=== PATIENT | female | born 1980 | race Caucasian/White ===

== ENCOUNTER 2021-11-19 10:51 | Outpatient (CLI) | payer OTHER ==
--- NOTE | 2021-11-19 14:20 | Ultrasound Report ---
PROCEDURE: Head or Neck Soft Tissue INDICATIONS: LUMP IN THYROID AREA TECHNIQUE: Real time scanning was performed of the neck region of interest, with image documentation . COMPARISON: None. FINDINGS: Normal size and appearance of the thyroid. No thyroid nodule or mass. No soft tissue mass o r fluid collection in the regional extrathyroidal soft tissues. IMPRESSION: Normal study. No thyroid nodule or thyroid mass. No extrathyroidal soft tissue mass within the [id number]. Reviewed by: Mayco Martinez MD on 11/19/2021 2:19 PM PDT Approved by: Mayco Martinez MD on 11/19/2021 2:19 PM PDT Station ID: [id number]
== END 2021-11-19 10:52 | disposition home or self-care (01) ==
LOC: DI 10:51
PROVIDERS: ATTEND Physician Assistant
DX: F45.8 Other somatoform disorders (principal); R09.89 Other specified symptoms and signs involving the circulatory and respiratory systems

== ENCOUNTER 2022-04-13 09:33 | Outpatient (CLI) | payer OTHER ==
[2022-04-13 10:24] VITALS: BP 136/84
--- NOTE | 2022-04-13 10:24 | SLEEP CARE CONSULTATION ---
Information from patient questionnaire entered by Mitchell Klein. I have reviewed and concur with the information entered by Mitchell Klein. This document represents the service I personally performed and the decisions made by me, Landy Yoder ARNP. History of Present Illness Service Date and Time: 04/13/2022 0933 Reason for Visit: New patient, sleep apnea on CPAP therapy Chief Complaint: reports: Insomnia, Fatigue, Frequent awakenings at night, Other (UPDATE SUPPLIES ) Date of Onset: 2YRS Usual bedtime: 1030-MIDNIGHT Time it takes to fall asleep: 15MIN - 2HRS Snores at night: Yes (not with CPAP use) Observed to quit breathing while asleep: No Sleeps alone due to snoring: No Number of times waking at night: 1-2 Reasons for waking at night: reports: Bathroom, Other (ANXIETY, ANIMALS ) Toss, Turn, or Twitch while sleeping: Yes Recalls having dreams: Yes Usually gets out of bed at: 720AM Feels refreshed in the morning: No Morning headache: No Sleepy or fatigued during the day: Yes Ever fallen asleep while driving: No Takes day naps: No Dreams during day naps: Yes Prior sleep studies: Yes (2019 [facility] [place] ) Type of Sleep Study: Home sleep study Additional HPI information: NESS BRISENO was previously diagnosed to have unknown, AHI unknown, sleep apnea-hypopnea syndrome and comes in today to establish care for CPAP therapy. - Parasomnia Symptoms Ever been unable to move upon waking from sleep: No Walks in sleep: No Talks in sleep: Yes Ever acted out dreams in sleep: Yes Ever felt weak in the knees when startled or emotional: No Bothered by creepy, crawly, restless sensations in legs: No Problems with memory or concentration: No CPAP Compliance Data - Data Reviewed with Patient Average duration of nightly device use: 6 hours 47 minutes Compliance rate %: 90 (30/30 days used; 75/90 days used) Current pressure setting (cmH2O): 5-20 (median 5.7, avg 8.0, max 8.9) Average residual AHI: 0.2 Central apnea: 0.1 Obstructive apnea: 0.1 Compliance data discussion: Patient is using a nasal pillows mask, ResMed Airfit P10. She has a ResMed Airsense 10 that she received in 2019. She has been purchasing her supplies online at [employer]. Subjective Missed days of use due to: reports: other (anxiety) Patient concerns: reports: other (puffy eyes in morning). denies: aerophagia, mask discomfort, air blowing in eyes, mask leak noise, condensation in mask/hose, nasal congestion, dry mouth, nose, throat, epistaxis Observed to snore while using device: No Current pressure setting perceived as: comfortable On therapy, patient: reports: sleeping better, more rested overall, other (help ful to reduce anxiety at night). denies: drowsiness while driving Initial [place] Sleepiness Scale score: 6 (03/31/2022) Past Medical History Past Medical History: reports: Anxiety Social History The patient's occupation is a SE. Patient is and lives in . Have you smoked in the past 12 months: No Cigarettes per day (20/pack): 20 Years of smokin Quit date: 2010 Smoking Pack Years: 18.0 Alcohol use: No Caffeine use: No Family History Family history of sleep disordered breathing: Yes Family Hx Sleep Apnea: Father: Snoring, Sleep apnea - Treated, Sleep apnea - Untreated Allergies and Home Medications Known drug allergies: No Drug allergies reviewed: Yes (NKDA) Home medication list reviewed: Yes Allergy and home medication list: Medications: Sertraline Trazodone Melatonin Review of Systems Cardiovascular: reports: high blood pressure Respiratory: reports: shortness of breath Gastrointestinal: reports: diarrhea Urinary: reports: urgency Psychiatric: reports: anxiety Ear/Nose/Throat: reports: wisdom teeth removed. denies: tonsillectomy Musculoskeletal: reports: joint pain, neck pain, back pain, muscle pain or cramping Immunologic: reports: rash Physical Exam Vital signs obtained and entered by: MITCHELL Mckeon MA Blood Pressure: 136/84 (LEFT ARM) Cuff size: regular Heart Rate: 82 O2 Saturation: 97 Height: 5 ft 6 in Weight: 223 lb 9.6 oz Body Mass Index: 36.1 BMI Classification: Obese Neck circumference: 15.5 Heart: regular rate and rhythm Lungs: clear bilaterally Impression and Plan 1. Obstructive Sleep Apnea-Hypopnea Syndrome, unknown, with good treatment compliance and good apnea control. On CPAP therapy, the patient has better sleep quality and is more rested overall. Patient has been on a CPAP since 2019 and states her sleep apnea was severe, about 30+ episodes an hour. We are trying to get a copy of her last sleep study with [facility] in [place]. If we are unable to get a copy of HST, I will order another sleep study to verify her diagnosis and severity. She has issues with anxiety and sometimes is unable to sleep at all at night. She is still having unrefreshed sleep. She feels she is lying awake with her CPAP on at times. She does like to wear her CPAP because it helps her to slow her breathing and reduces anxiety. She needs a DME to obtain CPAP supplies. I will have my faculty support coordinator inform of DME options. A DWO prescription will then be made. Patient has felt that the pressure is high when she wakes up at night. The pressure is still set open. The patients pressure will be changed to autoCPAP 5-7 cmH20 to reflect pressure being used with residual AHI of 0.2. Patient advised to contact me if pressure change is uncomfortable so that it can be adjusted. Goals for apnea control discussed. Patient advised to contact this office if further supply problems. Patient's apnea severity and rationale for treatment to reduce apnea, improve sleep quality and reduce cardiovascular and cerebrovascular events was reviewed. I also reviewed the benefit of consistent device use of CPAP for anxiety. 2. Obesity, unspecified. Currently patients BMI is 36.1. Obesity increases the risk of apnea, CPAP pressure requirements and overall health risks especially cardiovascular and diabetes. Thus patient is advised to lose weight. * Change auto CPAP pressure to 5-7 cmH2O * Obtain copy of sleep study * Transfer DME * Update supplies * Notify me if snoring with mask or feeling that the pressure is too much or too little * Attempt to lose weight * Call this office if any problems using CPAP * Return for follow up in 1 year (unless we need to have her do a PSG to verify diagnosis), or sooner if concerns arise Counseling Topics: Spare mask, Weight loss health impact Visit Type: In Office Time Spent with Patient (minutes): 32 Provider Statement: I spent 100% of the Face to Face Visit with the patient with greater than 50% spent counseling the patient and coordination of care.
== END 2022-04-13 09:34 | disposition home or self-care (01) ==
LOC: SC 09:33
PROVIDERS: ATTEND Nurse Practitioner Family
DX: G47.33 Obstructive sleep apnea (adult) (pediatric) (principal); E66.9 Obesity, unspecified; Z68.36 Body mass index [BMI] 36.0-36.9, adult; Z87.891 Personal history of nicotine dependence
CPT/HCPCS: 99203; 99212